=== PATIENT | male | born 1950 | race African-American/Black ===

== ENCOUNTER 2017-11-24 14:27 | Outpatient (CLI) | payer MEDICARE ==
[2017-11-24 15:21] LABS: Band 2 % (5-11); Eosinophils 1 % (0-10); Hemoglobin 8.3 g/dL (14.0-18.0); Hypochromia SLIGHT = 6-15 cells (100X) (0-5/hpf); Lymphocytes 53 % (21-51); MDiff Complete? YES; Mean Corpuscular HGB CONC 30.3 g/dL (32.0-36.0); Mean Corpuscular Hemoglobin 26.3 pg (27.0-31.0); Mean Corpuscular Volume 86.6 fl (80.0-94.0); Mean Platelet Volume 5.7 fL (7.4-10.4); Metamyelocyte 1 % (0-0); Microcytosis SLIGHT = 6-15 cells (100X) (0-5/hpf); Monocytes 4 % (0-10); Neutrophil 39 % (42-75); Nucleated RBC 1 % (0); PLT Morphology Comment Appears Decreased; Platelet Count 172 thou/uL (130-400); Red Blood Cell (RBC) Count 3.15 mill/uL (4.70-6.10)
[2017-11-24 15:22] LABS: White Blood Cell (WBC) Count 13.8 thou/uL (4.8-10.8)
== END 2017-11-24 14:28 | disposition home or self-care (01) ==
LOC: NAV LABSP 14:27
PROVIDERS: ATTEND Internal Medicine
DX: D69.6 Thrombocytopenia, unspecified (principal)
CPT/HCPCS: 36416; 85025